=== PATIENT | male | born 1990 | race Caucasian/White ===

== ENCOUNTER 2018-03-19 20:50 | Emergency (ER) | payer MEDICARE, OTHER ==
[~2018-03-19] VITALS: Ht 170.2 cm; Wt 77.1 kg
[~2018-03-19 20:50] MED LIST: HYDACE5 PO; IBUP800 PO; PENVK500 PO; TRAM50 PO
[2018-03-20] MEDS ORDERED: Amoxicillin875 MG PO (01:36)
== END 2018-03-20 01:54 | disposition home or self-care (01) ==
LOC: ER 20:50
DX: K08.89 Other specified disorders of teeth and supporting structures (principal); H60.91 Unspecified otitis externa, right ear; Z87.891 Personal history of nicotine dependence
CPT/HCPCS: 99282

== ENCOUNTER 2019-04-06 22:21 | Emergency (ER) | payer OTHER ==
[~2019-04-06] VITALS: Ht 170.2 cm; Wt 59.0 kg
[~2019-04-06 22:21] MED LIST changes: +Amoxicillin875 MG PO
[2019-04-07] MEDS ORDERED: Cleocin HCl300 MG PO (00:14)
[2019-04-07] MEDS ORDERED: IBUP600 PO (00:14)
== END 2019-04-07 00:24 | disposition home or self-care (01) ==
LOC: ER 22:21
DX: K02.9 Dental caries, unspecified (principal); K04.7 Periapical abscess without sinus; F17.200 Nicotine dependence, unspecified, uncomplicated
CPT/HCPCS: 99283; A9270-GY